=== PATIENT | male | born 1985 | race Caucasian/White ===

== ENCOUNTER 2018-12-17 15:29 | Emergency (ER) | payer OTHER ==
[2018-12-17] MEDS ORDERED: HYDROCODONE/APAP 10/325 TAB ONE (16:16)
[2018-12-17] MEDS ORDERED: LIDOCAINE 1% MPF 5 ML VIAL ONE (16:59)
--- NOTE | 2018-12-17 17:11 | RAD REPORT ---
EXAM DESCRIPTION: RAD - Foot Right 3 View - 12/17/2018 4:34 pm CLINICAL HISTORY: Right foot pain status post injury FINDINGS: First proximal phalanx dislocation No fracture seen
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
--- NOTE | 2018-12-17 17:48 | RAD REPORT ---
EXAM DESCRIPTION: RAD - Foot Right 3 View - 12/17/2018 5:37 pm CLINICAL HISTORY: Right foot pain FINDINGS: Previously described first proximal phalanx dislocation has been reduced
== END 2018-12-17 18:02 | disposition home or self-care (01) ==
LOC: ER 15:29
PROC: 0SSMXZZ Reposition Right Metatarsal-Phalangeal Joint, External Approach (ICD-10-PCS; principal; 2018-12-17)
DX: S93.121A Dislocation of metatarsophalangeal joint of right great toe, initial encounter (principal); V28.0XXA Motorcycle driver injured in noncollision transport accident in nontraffic accident, initial encounter; G40.909 Epilepsy, unspecified, not intractable, without status epilepticus; Z72.0 Tobacco use

== ENCOUNTER 2019-02-11 20:34 | Emergency (ER) | payer OTHER ==
[2019-02-11] MEDS ORDERED: HYDROCODONE/APAP 10/325 TAB ONE (20:59)
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
[2019-02-11] MEDS ORDERED: TETANUS & DIPHTHERIA TOX,ADULT 0.5 ML VIAL ONE (22:31)
[2019-02-11 22:59] VITALS: TEMP 98.2
[2019-02-11 23:00] VITALS: O2SAT 99
[2019-02-11 23:02] VITALS: BP 133/87
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
== END 2019-02-11 22:54 | disposition home or self-care (01) ==
LOC: ER 20:34
DX: S60.221A Contusion of right hand, initial encounter (principal); S40.212A Abrasion of left shoulder, initial encounter; V29.9XXA Motorcycle rider (driver) (passenger) injured in unspecified traffic accident, initial encounter; Y93.89 Activity, other specified; Y92.410 Unspecified street and highway as the place of occurrence of the external cause
CPT/HCPCS: 70450; 71045; 72125; 90471; 90714; 99284

== ENCOUNTER 2019-04-18 03:58 | Emergency (ER) | payer OTHER ==
--- OUTSIDE RECORDS SUMMARY | 2019-04-18 04:00 | XMS REPORT ---
:1985 [facility] Address [address] [place] [address] [place] [id number] Care Team Providers Name Role Phone Unavailable Unavailable Unavailable Problems This patient has no known problems. Allergies, Adverse Reactions, Alerts This patient has no known allergies or adverse reactions. Medications This patient has no known medications.
[2019-04-18] MEDS ORDERED: ONDANSETRON 4 MG/2 ML VIAL ONE (04:24)
[2019-04-18] MEDS ORDERED: MORPHINE 4 MG/ML SYR ONE (04:24)
[2019-04-18 04:28] LABS: Absolute Lymphocytes (CBC) 2.3 K/uL (0.7-4.9); Basophils % 0.6 % (0-1.3); Hematocrit 46.6 % (39.6-49.0); Lymphocytes % 28.6 % (15.3-44.8); MPV 7.3 fL (7.6-11.3)
[2019-04-18 04:45] LABS: Protime INR 0.87
[2019-04-18 04:56] LABS: ALT/SGPT 79 U/L (12-78); AST/SGOT 58 U/L (15-37); Albumin 3.8 g/dL (3.4-5.0); Alkaline Phosphatase 118 U/L (45-117); BUN Blood Urea Nitrogen 17 mg/dL (7-18); Bicarbonate 21 mmol/L (21-32); Bilirubin Direct < 0.1 mg/dL (0-0.2); Bilirubin Total 0.2 mg/dL (0.2-1.0); Glucose Level 130 mg/dL (74-106); Magnesium 2.4 mg/dL (1.8-2.4); NT PRO-BNP 9 pg/mL (<125); Potassium 3.6 mmol/L (3.5-5.1); Protein, Total 7.5 g/dL (6.4-8.2); Sodium Level 140 mmol/L (136-145); Troponin (Emerg Dept Use Only) < 0.02 ng/mL (0.0-0.045)
[2019-04-18 05:00] LABS: Barbiturates NEGATIVE (NEGATIVE); Benzodiazepines NEGATIVE (NEGATIVE); Cocaine NEGATIVE (NEGATIVE); METHAMPHETAM NEGATIVE (NEGATIVE); Methadone NEGATIVE (NEGATIVE); Opiates NEGATIVE (NEGATIVE); Phencyclidine NEGATIVE (NEGATIVE); THC Cannibis NEGATIVE (NEGATIVE)
[2019-04-18] MEDS ORDERED: NA CHLORIDE 0.9% 1,000 ML ONE (05:50)
--- NOTE | 2019-04-18 07:00 | EDPHYS ---
Physician Documentation [facility] Name: Dale Watts Age: 33 yrs Sex: Male : 1985 Arrival Date: 04/18/2019 Time: 04:01 Bed 26 Private MD: ED Physician Zane Silveira HPI: 04/18 04:19 This 33 yrs old Male presents to ER via Unassigned with complaints of Chest tw4 Pain, Shortness Of Breath. 04:19 The patient or guardian reports chest pain that is located primarily in the anterior tw4 chest wall, left. The pain does not radiate. Associated signs and symptoms: Pertinent positives: shortness of breath. The chest pain is described as dull, a heaviness. Duration: The patient or guardian reports a single episode, that is still ongoing. Modifying factors: The symptoms are alleviated by nothing. the symptoms are aggravated by nothing. Severity of pain: At its worst the pain was moderate in the emergency department the pain is unchanged. The patient has experienced similar episodes in the past, a few times. Historical: - Allergies: 04:58 No Known Allergies; ea - Home Meds: 04:58 Keppra Oral [Active]; ea - PMHx: 04:58 Seizures; ea - Immunization history:: Adult Immunizations up to date. - Social history:: Smoking status: Patient uses tobacco products, denies chronic smoking, but will smoke occasionally. - Ebola Screening: : No symptoms or risks identified at this time. ROS: 04:19 Constitutional: Negative for fever, chills, and weight loss, Eyes: Negative for injury, tw4 pain, redness, and discharge, Abdomen/GI: Negative for abdominal pain, nausea, vomiting, diarrhea, and constipation, Back: Negative for injury and pain, MS/Extremity: Negative for injury and deformity, Skin: Negative for injury, rash, and discoloration, Neuro: Negative for headache, weakness, numbness, tingling, and seizure. 04:19 Cardiovascular: Positive for chest pain, Negative for edema, orthopnea, palpitations. 04:19 Respiratory: Positive for shortness of breath, Negative for cough, dyspnea on exertion, hemoptysis, orthopnea, pleurisy, sputum production, wheezing. Exam: 04:19 Constitutional: This is a well developed, well nourished patient who is awake, alert, tw4 and in no acute distress. Head/Face: Normocephalic, atraumatic. Eyes: Pupils equal round and reactive to light, extra-ocular motions intact. Lids and lashes normal. Conjunctiva and sclera are non-icteric and not injected. Cornea within normal limits. Periorbital areas with no swelling, redness, or edema. Chest/axilla: Normal chest wall appearance and motion. Nontender with no deformity. No lesions are appreciated. 04:19 Cardiovascular: Rate: tachycardic, Rhythm: regular, Pulses: no pulse deficits are appreciated. Vital Signs: 04:10 BP 120 / 80; Pulse 125; Resp 22; Temp 98.7; Pulse Ox 95% ; Weight 108.86 kg; Height 5 ea ft. 7 in. (170.18 cm); Pain 8/10; 04:51 BP 111 / 66; Pulse 114; Resp 21; Pulse Ox 97% on R/A; ea 05:30 BP 121 / 75; Pulse 110; Resp 18; Pulse Ox 96% on R/A; ea 06:34 BP 116 / 75; Pulse 98; Resp 19; Pulse Ox 100% on R/A; ea 07:45 BP 124 / 76; Pulse 89; Resp 15; Pulse Ox 100% on R/A; Pain 0/10; hb 04:10 Body Mass Index 37.59 (108.86 kg, 170.18 cm) ea MDM: 04:04 Patient medically screened. tw04/18 04:05 Order name: Basic Metabolic Panel 04/18 04:05 Order name: CBC with Diff; Complete Time: 05:47 04/18 05:47 Interpretation: Normal except: MPV 7.3. 04/18 04:05 Order name: LFT's; Complete Time: 05:47 04/18 05:47 Interpretation: Normal except: AST 58; ALT 79; ALK 118; GLOB 3.7; A/G 1.0. 04/18 04:05 Order name: Magnesium 04/18 04:05 Order name: NT PRO-BNP; Complete Time: 05:47 04/18 05:47 Interpretation: Within normal limits: NT PRO-BNP 9. 04/18 04:05 Order name: PT-INR; Complete Time: 05:47 18 05:47 Interpretation: Within normal limits: PT 10.3. tw4 04/18 04:05 Order name: Troponin (emerg Dept Use Only) 04/18 04:05 Order name: XRAY Chest (1 view) 04/18 04:06 Order name: Basic Metabolic Panel; Complete Time: 05:47 EDMS 04/18 05:47 Interpretation: Normal except: GLUC 130; GFR 74. tw04/18 04:15 Order name: CT Chest For PE Angio 4 04/18 04:15 Order name: Urine Drug Screen 04/18 06:38 Order name: Troponin (emerg Dept Use Only) tw4 04/18 04:05 Order name: EKG; Complete Time: 04:07 04/18 04:05 Order name: Cardiac monitoring; Complete Time: 04:54 04/18 04:05 Order name: EKG - Nurse/Tech; Complete Time: 04:54 04/18 04:05 Order name: IV Saline Lock; Complete Time: 04:54 tw 04/18 04:05 Order name: Labs collected and sent; Complete Time: 04:54 tw04/18 04:05 Order name: O2 Per Protocol; Complete Time: 04:54 tw04/18 04:05 Order name: O2 Sat Monitoring; Complete Time: 04:54 tw4 EC:19 Rate is 125 beats/min. Rhythm is regular, Sinus tachycardia. QRS Carmine is Normal. RI tw4 interval is normal. QRS interval is normal. QT interval is normal. No Q waves. No ST changes noted. Clinical impression: Sinus tachycardia. Interpreted by me. Reviewed by me. Administered Medications: 04:40 Drug: Zofran 4 mg Route: IVP; Site: right antecubital; ea 05:49 Follow up: Response: No adverse reaction; Nausea is decreased ea 04:43 Drug: morphine 4 mg {Note: RASS 1.} Route: IVP; Site: right antecubital; ea 05:50 Follow up: Response: No adverse reaction; Pain is decreased; RASS: Alert and Calm (0) ea 05:54 Drug: NS 0.9% 1000 ml Route: IV; Rate: 1 bolus; Site: right antecubital; ea Disposition: 04/18/19 06:59 Discharged to Home. Impression: Chest pain, unspecified. - Condition is Stable. - Discharge Instructions: Nonspecific Chest Pain, Pain Without a Known Cause, Nonspecific Chest Pain, [id number]. - Prescriptions for Ibuprofen 600 mg Oral Tablet - take 1 tablet by ORAL route every 6 hours As needed take with food; 30 tablet. - Work release form, Medication Reconciliation Form, Thank You Letter, Antibiotic Education, Prescription Opioid Use form. - Follow up: Private Physician; When: Upon discharge from the Emergency Department; Reason: Recheck today's complaints, Continuance of care. Follow up: Mk Child MD; When: Upon discharge from the Emergency Department; Reason: Recheck today's complaints, Continuance of care. Follow up: Arturo Gregory MD; When: Upon discharge from the Emergency Department; Reason: Recheck today's complaints, Continuance of care. - Problem is new. - Symptoms have improved. Signatures: Dispatcher [employer] EDLenora Jang RN RN hb Antunez, Elena, RN RN ea Wadley, Terrence, MD MD tw4 Corrections: (The following items were deleted from the chart) 07:54 06:59 04/18/2019 06:59 Discharged to Home. Impression: Chest pain, unspecified. hb Condition is Stable. Discharge Instructions: Nonspecific Chest Pain, Pain Without a Known Cause, Nonspecific Chest Pain, [id number]. Prescriptions for Ibuprofen 600 mg Oral Tablet - take 1 tablet by ORAL route every 6 hours As needed take with food; 30 tablet. and Forms are Medication Reconciliation Form, Thank You Letter, Antibiotic Education, Prescription Opioid Use. Follow up: Private Physician; When: Upon discharge from the Emergency Department; Reason: Recheck today's complaints, Continuance of care. Follow up: Mk Child; When: Upon discharge from the Emergency Department; Reason: Recheck today's complaints, Continuance of care. Follow up: Arturo Gregory; When: Upon discharge from the Emergency Department; Reason: Recheck today's complaints, Continuance of care. Problem is new. Symptoms have improved. tw4
--- NOTE | 2019-04-18 07:00 | ER ---
Nurse's Notes [facility] Name: Dale Watts Age: 33 yrs Sex: Male : 1985 Arrival Date: 04/18/2019 Time: 04:01 Bed 26 [facility] MD: Diagnosis: Chest pain, unspecified Presentation: 04/18 04:10 Presenting complaint: Patient states: Reports he was at [facility] and he started having ea chest pain and SOB. Transition of care: patient was not received from another setting of care. Onset of symptoms was April 18, 2019. Risk Assessment: Do you want to hurt yourself or someone else? Patient reports no desire to harm self or others. Initial Sepsis Screen: Does the patient meet any 2 criteria? HR > 90 bpm. Does the patient have a suspected source of infection? No. Patient's initial sepsis screen is negative. Care prior to arrival: None. 04:10 Method Of Arrival: Ambulatory ea 04:10 Acuity: RAKEL 3 ea Historical: - Allergies: 04:58 No Known Allergies; ea - Home Meds: 04:58 Keppra Oral [Active]; ea - PMHx: 04:58 Seizures; ea - Immunization history:: Adult Immunizations up to date. - Social history:: Smoking status: Patient uses tobacco products, denies chronic smoking, but will smoke occasionally. - Ebola Screening: : No symptoms or risks identified at this time. Screenin:56 Abuse screen: Denies threats or abuse. Nutritional screening: No deficits noted. ea Tuberculosis screening: No symptoms or risk factors identified. Fall Risk IV access (20 points). Assessment: 04:10 General: Appears uncomfortable, Behavior is restless. Pain: Complains of pain in chest ea Pain does not radiate. Pain began 30 min ago. Neuro: Level of Consciousness is awake, alert, obeys commands, Oriented to person, place, time, situation. Cardiovascular: Heart tones S1 S2 present. Respiratory: Airway is patent Respiratory effort is even, unlabored, Respiratory pattern is symmetrical, tachypnea. Derm: Skin is clammy, Skin is flushed, Skin temperature is warm. 05:54 Reassessment: Patient and/or family updated on plan of care and expected duration. Pain ea level reassessed. Patient is alert, oriented x 3, equal unlabored respirations, skin warm/dry/pink. Awaiting on CT results Patient states feeling better. 06:17 Reassessment: Patient and/or family updated on plan of care and expected duration. Pain ea level reassessed. Patient is alert, oriented x 3, equal unlabored respirations, skin warm/dry/pink. Patient states feeling better. 07:40 Reassessment: Patient appears in no apparent distress at this time. Patient and/or hb family updated on plan of care and expected duration. Pain level reassessed. Patient is alert, oriented x 3, equal unlabored respirations, skin warm/dry/pink. Patient states feeling better. Patient states symptoms have improved. Vital Signs: 04:10 BP 120 / 80; Pulse 125; Resp 22; Temp 98.7; Pulse Ox 95% ; Weight 108.86 kg; Height 5 ea ft. 7 in. (170.18 cm); Pain 8/10; 04:51 BP 111 / 66; Pulse 114; Resp 21; Pulse Ox 97% on R/A; ea 05:30 BP 121 / 75; Pulse 110; Resp 18; Pulse Ox 96% on R/A; ea 06:34 BP 116 / 75; Pulse 98; Resp 19; Pulse Ox 100% on R/A; ea 07:45 BP 124 / 76; Pulse 89; Resp 15; Pulse Ox 100% on R/A; Pain 0/10; hb 04:10 Body Mass Index 37.59 (108.86 kg, 170.18 cm) ea ED Course: 04:01 Patient arrived in ED. jg7 04:04 Zane Silveira MD is Attending Physician. tw4 04:10 Arm band placed on right wrist. Patient placed in an exam room, on a stretcher, on ea pulse oximetry. 04:10 Patient has correct armband on for positive identification. Placed in gown. Bed in low ea position. Call light in reach. Side rails up X 1. youth nutritional monitor on. Pulse ox on. NIBP on. 04:21 XRAY Chest (1 view) In Process Unspecified. EDMS 04:30 Inserted saline lock: 20 gauge in right antecubital area, using aseptic technique. ea Patient maintains SpO2 saturation greater than 95% on room air. 04:57 Triage completed. ea 04:59 Cristina Ortiz RN is Primary Nurse. ea 05:19 CT completed. Patient tolerated procedure well. Patient moved to CT via stretcher. Patient moved back from CT. 05:34 CT Chest For PE Angio In Process Unspecified. EDMS 06:59 Mk Child MD is Referral Physician. tw4 06:59 Arturo Gregory MD is Referral Physician. tw4 07:45 No provider procedures requiring assistance completed. IV discontinued, intact, hb bleeding controlled, No redness/swelling at site. Pressure dressing applied. Administered Medications: 04:40 Drug: Zofran 4 mg Route: IVP; Site: right antecubital; ea 05:49 Follow up: Response: No adverse reaction; Nausea is decreased ea 04:43 Drug: morphine 4 mg {Note: RASS 1.} Route: IVP; Site: right antecubital; ea 05:50 Follow up: Response: No adverse reaction; Pain is decreased; RASS: Alert and Calm (0) ea 05:54 Drug: NS 0.9% 1000 ml Route: IV; Rate: 1 bolus; Site: right antecubital; ea Outcome: 06:59 Discharge ordered by . tw4 07:45 Discharged to home ambulatory. hb 07:45 Condition: stable 07:45 Discharge instructions given to patient, Instructed on discharge instructions, follow up and referral plans. medication usage, Demonstrated understanding of instructions, follow-up care, medications, Prescriptions given X 1. 07:54 Patient left the ED. hb Signatures: Dispatcher [employer] [facility] Sixto Zuñiga Lenora Espana, RN Cristina Thorpe, RN RN Zane Veliz MD MD 4 Ember Colvin7
--- NOTE | 2019-04-18 07:47 | EKG ---
Test Date: 2019-04-18 Test Time: 04:07:59 Pediatric Social Worker: AUGUSTINA MEASUREMENT RESULTS: Intervals: Rate: 128 SC: 144 QRSD: 98 QT: 300 QTc: 438 [place]: P: 59 SC: 144 QRS: 41 T: 53 INTERPRETIVE STATEMENTS: Sinus tachycardia Otherwise normal ECG Compared to ECG 03/27/2013 08:38:14 Sinus rhythm no longer present Electronically Signed On 04-18-19 07:47:28 [employer] by Arturo Gregory
[2019-04-18 07:59] VITALS: TEMP 98.7
[2019-04-18 08:03] VITALS: O2SAT 100
[2019-04-18 08:04] VITALS: BP 124/76
--- NOTE | 2019-04-18 08:12 | RAD REPORT ---
EXAM DESCRIPTION: RAD - Chest Single View - 04/18/2019 4:21 am CLINICAL HISTORY: SOB Chest pain. COMPARISON: Chest Single View dated 02/11/2019; Chest For Pe Angio dated 04/18/2019 FINDINGS: Portable technique limits examination quality. The lungs are grossly clear. The heart is normal in size. No displaced fractures. IMPRESSION: No acute intrathoracic process suspected.
--- NOTE | 2019-04-18 11:18 | RAD REPORT ---
EXAM DESCRIPTION: CT Angiography Chest With Intravenous Contrast CLINICAL HISTORY: The patient is 33 years old and is Male; SOB TECHNIQUE: Axial computed tomographic angiography images of the chest with intravenous contrast. S agittal and coronal reformatted images were created and reviewed. This CT exam was performed using one or more of the following dose reduction techniques: automated exposure control, adjustment of t he mA and/or kV according to patient size, and/or use of iterative reconstruction technique. MIP reconstructed images were created and reviewed. COMPARISON: No relevant prior studies available. FINDINGS: PULMONARY ARTERIES: Unremarkable. No pulmonary embolism. AORTA: No acute findings. No thoracic aortic aneurysm. LUNGS: Unremarkable. No mass. No consolidation. PLEURAL SPACE: Unremarkable. No significant effusion. No pneumothorax. HEART: Unremarkable. No cardiomegaly. No significant pericardial effusion. No evidence of RV dysfunction. BONES/JOINTS: No acute fracture. No dislocation. SOFT TISSUES: Unremarkable. LYMPH NODES: Unremarkable. No enlarged lymph nodes. IMPRESSION: Normal chest CTA. No pulmonary embolism. Electronically signed by: Jillian Moreno MD 04/18/2019 5:50 AM TIRE FINISHER Due to temporary technical issues with the PACS/Fluency reporting system, reports are being signed by the in house radiologist as a courtesy to ensure prompt reporting. The interpreting radiologist is f ully responsible for the content of the report.
== END 2019-04-18 07:54 | disposition home or self-care (01) ==
LOC: ER 03:58
DX: R07.9 Chest pain, unspecified (principal); Z72.0 Tobacco use
CPT/HCPCS: 93005; 85025; 80048; 36415; 83735; 85610; 80076; 80307 ×8; 84484 ×2; 83880; 71275; 71045; 96375; 96374; 99285; Q9967; J7030; J2405